=== PATIENT | male | born 1995 | race Caucasian/White ===

== ENCOUNTER 2016-12-26 10:45 | Emergency (ER) | payer OTHER ==
[2016-12-26 12:26] LABS: BASOPHIL 0.5 % (0-2); EOSINOPHIL 2.4 % (0-5); HCT 44.1 % (42.0-52.0); HGB 15.1 g/dl (13.2-18.0); LYMPHOCYTE 20.8 % (15-48); MCH 30.7 pg (25.0-31.0); MCHC 34.2 g/dL (32.0-36.0); MCV 89.6 fL (78.0-100.0); MPV 11.9 fL (6.0-9.5); NEUTROPHIL 61.3 % (41-80); PLT 149 K/uL (150-400); RBC 4.92 M/uL (4.70-6.00); RDW 12.8 % (11.5-14.0); WBC 6.6 K/uL (4.0-10.5)
[2016-12-26 12:36] LABS: ACETAMINOPHEN (TYLENOL) < 5.0 ug/mL (10.0-30.0); ALCOHOL (ETOH) MEDICAL NONE DETECTED; SALICYLATE < 6 ug/mL (0-300)
[2016-12-26 12:37] LABS: ALBUMIN 4.6 g/dL (3.5-5.0); BILIRUBIN - TOTAL 0.5 mg/dL (0.1-1.0); CREATININE 0.9 mg/dL (0.7-1.2); GLOBULIN (CALCULATION) 2.1 g/dL (2.2-4.2); POTASSIUM 4.7 mmol/L (3.5-5.1); TOTAL PROTEIN 6.7 g/dL (6.4-8.3)
[2016-12-26 12:41] LABS: AMPHETAMINES NEGATIVE (NEGATIVE); BARBITURATES NEGATIVE (NEGATIVE); BENZODIAZEPINES NEGATIVE (NEGATIVE); COCAINE NEGATIVE (NEGATIVE); MARIJUANA (THC) NEGATIVE (NEGATIVE); METHADONE NEGATIVE (NEGATIVE); TRICYCLIC ANTIDEPRESSANT POSITIVE (NEGATIVE)
== END 2016-12-26 14:25 | disposition home or self-care (01) ==
LOC: FER 10:45
PROVIDERS: Emergency Medicine
DX: F14.21 Cocaine dependence, in remission (principal); F12.21 Cannabis dependence, in remission; F17.200 Nicotine dependence, unspecified, uncomplicated; G40.409 Other generalized epilepsy and epileptic syndromes, not intractable, without status epilepticus
CPT/HCPCS: 36415; 80053; 80305; 85025; G0480

== ENCOUNTER 2016-12-28 01:44 | Emergency (ER) | payer OTHER ==
[2016-12-28 03:26] LABS: AMPHETAMINES NEGATIVE (NEGATIVE); BARBITURATES NEGATIVE (NEGATIVE); BENZODIAZEPINES NEGATIVE (NEGATIVE); COCAINE NEGATIVE (NEGATIVE); MARIJUANA (THC) NEGATIVE (NEGATIVE); METHADONE NEGATIVE (NEGATIVE); TRICYCLIC ANTIDEPRESSANT POSITIVE (NEGATIVE)
== END 2016-12-28 08:21 | disposition home or self-care (01) ==
LOC: FER 01:44
PROVIDERS: Emergency Medicine
DX: F12.10 Cannabis abuse, uncomplicated (principal); F31.30 Bipolar disorder, current episode depressed, mild or moderate severity, unspecified; F17.210 Nicotine dependence, cigarettes, uncomplicated; Z79.899 Other long term (current) drug therapy
CPT/HCPCS: 80305; 93005; 99285